=== PATIENT | male | born 1980 | race Hispanic/Latino ===

== ENCOUNTER 2024-06-02 14:06 | Emergency (ER) | payer BC, OTHER ==
--- OUTSIDE RECORDS SUMMARY | 2024-06-02 14:10 | XMS REPORT | Continuity of Care Document ---
Author Name Unknown Address [address] [facility] [address] [place] [address] [facility] Address [address] [facility] [address] [place] [address] Care Team Providers Care Qa Architect Name Role Phone PCP, PATIENT DOES NOT HAVE A Primary Care Physic nitish Unavailable LUIS GARCIA Attending Clinician Unavailab le Doctor Unassigned, [place] Attending Clinician U sincere Banerjee RN, Brody Galvan Attending Clinician Unavail RAUL Pool Attending Clinician Unavailwenceslao Lockwood MD, Pratima Galvan Attending Clinician [phone] Radha Kulkarni MD Attending Clinician Raul Diana MD Attending Clinician RADHA KULKARNI Admitting Clinician Unavail Radha Duarte MD Admitting Clinician Payers Payer Name Policy Type Policy Number Effective Date Expirati on Date Source Problems Condition Name Condition Details Condition Category Status Onset Date Resolution Date Last Treatment Date Treating Clinician Comments Source COVID-19 COVID-19 Disease Active 05-20 00:00: 00 [facility] Obesity (BMI 30-39.9) Obesity (BMI 30-39.9) Disease Active 05-20 00:00: 00 [facility] Allergies, Adverse Reactions, Alerts Allergy Name Allergy Type Status Severity Reaction(s) Onset Date Inactive Date Treating Clinician Comments Source NO KNOWN ALLERGIE S Drug Class Active [facility] Social History Social Habit Start Date Stop Date Quantity Comments Source Exposure to SARS-CoV-2 (event) Not sure [facility] Tobacco use and exposure 2020-05-21 00:00:00 2020-05-21 00:00:00 Never used [facility] Alcohol intake 2020-05-21 00:00:00 2020-05-21 00:00:00 Ex-drinker (finding) [facility] Sex Assigned At 1980 00:00:00 1980 00:00:00 [facility] Smoking Status Start Date Stop Date Source Never smoker [facility] Medications Ordered Medication Name Filled Medication Name Start Date Stop Date Current Medication? Ordering Clinician Indication Dosage Frequency Signature (SIG) Comments Components Source dextrometho rphan-guaif enesin 10-100 mg/5 mL solution 05-27 00:00: 00 06-27 04:59 :00 No [id number] 5mL Take 5 mL by mouth every 6 (six) hours as needed for Cough for up to 30 days. [facility] albuterol-i pratropium 20-100 mcg/actuati on inhaler 05-27 00:00: 00 06-27 04:59 :00 No [id number] 1{puff} Inhale 1 Puff every 6 (six) hours for 30 days. [facility] benzonatate 100 mg capsule 05-27 00:00: 00 06-27 04:59 :00 No [id number] 200mg Take 2 capsules by mouth 3 (three) times daily as needed for Cough for up to 30 days. [facility] dexAMETHaso ne 4 mg tablet 05-27 00:00: 00 05-30 04:59 :00 No [id number] 6mg Take 1.5 tablets by mouth daily for 2 days. [facility] furosemide (LASIX) injection 20 mg 05-23 15:15: 00 05-23 15:20 :00 No 20mg 20 mg, Slow IV Push, ONCE NOW, 1 dose, Sat05/23/20 at 1015, Routine [facility] benzonatate (TESSALON PERLES) capsule 200 mg 05-22 14:42: 25 Yes 200mg 200 mg, Oral, TIDPRN, Starting 05/22/20 at 0942, Until Discontinu ed, Routine, Cough [facility] dexamethaso ne (DECADRON PHOSPHATE) 6 mg in NaCl 0.9% (NS) 50 mL piggyback 05-21 23:00: 00 05-30 22:59 :00 No 6mg 6 mg, IV Piggyback, Q24H, 9 doses, First dose on [facility] 05/21/20 at 1800, Last dose on [place] 05/29/20 at 1800, 50 mL [facility] albuterol-i pratropium (COMBIVENT RESPIMAT) 20-100 mcg/actuati on inhaler 1 Puff 05-21 17:00: 00 Yes 1{puff} 1 Puff, Inhalation , Q6H, First dose (after last modificati on) on 05/21/20 at 1200, Until Discontinu ed, Routine
Is this order for a patient with suspected or confirmed COVID-19 infection? Yes [facility] enoxaparin (LOVENOX) injection 40 mg 05-21 14:00: 00 Yes 40mg 40 mg, Subcutaneo us, DAILY, First dose on 05/21/20 at 0900, Until Discontinu ed, Routine [facility] acetaminoph en (TYLENOL) tablet 325 mg 05-21 04:33: 50 Yes 325mg 325 mg, Oral, Q6HPRN, Starting Sat05/20/20 at 2333, Until Discontinu ed, Routine, Pain (scale 1-3), Pain (scale 4-6), Temp > 38.5 C [facility] dextrometho rphan-guaif enesin (ROBITUSSIN DM) 10-100 mg/5 mL solution 5 mL 05-21 04:33: 44 Yes 5mL 5 mL, Oral, Q6HPRN, Starting Sat05/20/20 at 2333, Until Discontinu ed, Routine, Cough [facility] Vital Signs Vital Name Observation Time Observation Value Comments S monica Heart rate 2020-05-27 17:52:00 83 /min [facility] Respiratory rate 2020-05-27 17:52:00 20 /min [facility] Oxygen saturation in Arterial blood by Pulse oximetry 2020-05-27 17:52:00 95 /min [facility] Systolic blood pressure 2020-05-27 16:27:00 112 mm[Hg] [facility] Diastolic blood pressure 2020-05-27 16:27:00 72 mm[Hg] [facility] Body temperature 2020-05-27 16:27:00 36.11 Jumana [facility] Body height 2020-05-21 04:40:00 175.3 cm [facility] Body weight 2020-05-21 04:40:00 121.1 kg [facility] BMI 2020-05-21 04:40:00 39.41 kg/m2 [facility] Procedures Procedure Date / Time Performed Performing Clinician Source EXTERNAL PROVIDER RECORDS 2020-06-09 05:01:00 Do ctor Unassigned, [place] [facility] MAGNESIUM 2020-05-24 09:21:00 Raul De Dios [facility] BASIC METABOLIC PANEL (NA, K, CL, CO2, GLUCOSE, BUN, CREATININE, CA) 2020-05-24 09:21:00 Raul De Dios [facility] HEPATIC FUNCTION PANEL ([id number]) (ALB,T.PRO,BILI T,BU/BC,ALT,AST,ALK PHOS) 2020-05-21 13:38:00 Millie Orozco [facility] BASIC METABOLIC PANEL (NA, K, CL, CO2, GLUCOSE, BUN, CREATININE, CA) 2020-05-21 13:38:00 [facility] CBC WITH DIFF 2020-05-21 13:38:00 Millie Orozco [facility] XR CHEST 1 VW 2020-05-21 10:58:00 Millie Orozco [facility] PNEUMOCOCCAL ANTIGEN 2020-05-21 08:24:00 Millie Orozco [facility] COVID-19 (ID NOW RAPID TESTING) 2020-05-21 08:19:00 [facility] LAB ONLY COVID INTERPRETATION 2020-05-21 08:19:00 Millie Orozco [facility] LACTATE DEHYDROGENASE 2020-05-21 05:13:00 [facility] FERR[facility] SERUM 2020-05-21 05:13:00 Millie Orozco [facility] C-REACTIVE PROTEIN 2020-05-21 05:13:00 Millie Orozco [facility] HEPATIC FUNCTION PANEL ([id number]) (ALB,T.PRO,BILI T,BU/BC,ALT,AST,ALK PHOS) 2020-05-21 05:13:00 [facility] BASIC METABOLIC PANEL (NA, K, CL, CO2, GLUCOSE, BUN, CREATININE, CA) 2020-05-21 05:13:00 [facility] CBC WITH DIFF 2020-05-21 05:13:00 Millie Orozco [facility] PROTHROMBIN TIME / INR 2020-05-21 05:13:00 [facility] D-DIMER 2020-05-21 05:13:00 Millie Orozco [facility] ACTIVATED PARTIAL THRMPLAS SPENCER 2020-05-21 05:13:00 [facility] N-TERMINAL PRO-BNP 2020-05-21 05:13:00 Millie Orozco [facility] PROCALCITONIN 2020-05-21 05:13:00 Millie Orozco [facility] HOSPITAL ADMISSION 2020-05-20 05:01:00 Doctor Un assigned, [place] [facility] Encounters Start Date/Time End Date/Time Encounter Type Admission Type Attending Clinicians Care Facility Care Department Encounter ID Source 2022-02-02 13:00:00 Inpatient SCAR BULLOCKJOSE, LUIS [facility] [id number] [facility] 2022-02-09 09:01:00 2022-02-09 09:01:00 Outpatient SCAR JOSELUIS PEÑALOZA [facility] [id number] [facility] 2020-06-09 00:00:00 2020-06-09 00:00:00 Orders Only Doctor Unassigned, [place] [facility] [id number] [facility] 2020-05-30 00:00:00 2020-05-30 00:00:00 Transition of Care Brody Banerjee Benjamín Harden [id number] [facility] 2020-05-20 23:05:00 2020-05-27 17:00:00 Inpatient U RAUL DIANA [facility] [id number] [facility] 2020-05-20 23:05:00 2020-05-27 17:00:00 Hospital Encounter Pratima Lockwood, Raul Perez [facility] [id number] [facility] Results Test Description Test Time Test Comments Results Result Co mments Source [facility] 10:03:42* Test Item Value Reference Range Interpretation Comme nts MAGNESIUM (test code = 7271759164) 2.4 mg/dL 1.7-2.4 Lab Interpretation (test cod e = 50113-4) Normal [facility] COVID [id number] 11:22:12COVID DMT InterpretationInterpretation/Recommendations: Molecular NAAT Tests for Active Infection with the SARS-CoV-2 Virus: The current test result is positive for the SARS-CoV-2 virus that causes COVID-19 illness. In ygxg-da-yqyaqkbo illness, the patient may be considered no longer infectious when it has been after 10 days since symptom onset, the patient has been afebrile for 24 hours without the use of fever-reducing medications, AND other symptoms of COVID-19 are improving. However, in patients who have been severely ill with COVID-19 or are severely immunocompromised, isolation up to 20days after symptom onset is recommended. Asymptomatic patients are considered infectious for the first 10 days subsequent to the initial positive test result. From the onset of symptoms, if any, thisresult is likely to remain positive up to 2-4 weeks. Tests for IgM and/or IgG Antibodies to the SARS-CoV-2 Virus: ? Testing for IgM and IgG antibodies approximately 3 weeks after illness onset will likely indicate whether the patient has produced antibodies to the SARS-CoV-2 virus. However, some patients may take longer to develop detectable antibodies, while some patients who were infected with SARS-CoV-2 may never develop antibodies. While antibodies to SARS-CoV-2 may provide some degree of im munity, at this time the strength and duration of the antibody response is unknown. Interpretation Result Comments:These interpretation comments are based upon all COVID-19 testing the patient has had at [facility], including molecular NAAT testing (more commonly known as PCR testing and Rapid ID Now testing) and antibody testing.It does not take into account any testing that a patient has had outside of the [facility] medical record. [facility] LABORATORY SERVICESCOVID PdiqrbvRFIT-YpO-0 Rapid ID NOW (no units) ? ? Date ? Value ? 05/21/2020 ? Positive (A) ? [facility] SERVICESUn[facility]-REACTIVE [id number] 16:10:53* Test Item Value Reference Range Interpretation Comme nts CRP (test code = 4954512767) 28.4 mg/dL <0.8 H Lab Interpretation (test cod e = 92381-2) Abnormal [facility] 1 [id number] 15:46:25Diffuse bilateral airspace opacities concerning for a multifocal infectiousprocess, consistent withhistory of COVID. Superimposed pneumonia can't beexcluded given the extensive changes. Cardiomegaly. Small bilateral perfusions. Preliminary Report Dictated by Resident: Khoi Madden MD., have reviewed this study and agree with the abovereport.EXAM: XR CHEST 1 VW COMPARISON: None HISTORY: COVID, SOB FINDINGS: Lungs: Diffuse bilateral patchy airspace opacities. Small bilateralpleuraleffusions are suspected. No pneumothorax. Heart/Mediastinum: The cardiomediastinal silhouette is obscured but likelyenlarged. Bones: No acute osseous abnormality is seen. [facility], Radiant ResultsInft User - 05/21/2020 10:47 AM CDTEXAM: XR CHEST 1 VWCOMPARISON: NoneHISTORY: COVID, SOB FINDINGS:Lungs: Diffuse bilateral patchy airspace opacities. Small bilateral pleuraleffusions are suspected. No pneumothorax.Heart/Mediastinum: The cardiomediastinal silhouette is obscured but likelyenlarged.Bones: No acute osseous abnormality is seen.IMPRESSIONDiffuse bilateral airspace opacities concerningfor a multifocal infectiousprocess, consistent with history of COVID. Superimposed pneumonia can't beexcluded given the extensive changes.Cardiomegaly.Small bilateral perfusions.Preliminary Report Dictated by Resident: Khoi Jasmine MD., have reviewed this study and agree with theabovereport.[facility] WITH [id number] 14:57:08* Test Item Value Reference Range Interpretation Comme nts WBC (test code = 6690-2) See_Comment H [Automated messa ge] The system which generated this result transmitted reference range: 4.20 - 10.70 10*3/?L. The reference range was not used to interpret this result as normal/abnormal. RBC (test code = 789-8) See_Comment [Automated messa ge] The system which generated this result transmitted reference range: 4.26 - 5.52 10*6/?L. The reference range was not used to interpret this result as normal/abnormal. HGB (test code = 718-7) 14.3 g/dL 12.2-16.4 HCT (test code = 4544-3) 41.6 % 38.4-49.3 MCV (test code = 787-2) 86.7 fL 81.7-95.6 MCH (test code = 785-6) 29.8 pg 26.1-32.7 MCHC (test code = 786-4) 34.4 g/dL 31.2-35.0 RDW-SD (test code = 83343-1) 40.3 fL 38.5-51.6 RDW-CV (test code = 788-0) 12.7 % 12.1-15.4 PLT (test code = 777-3) See_Comment H [Automated messa ge] The system which generated this result transmitted reference range: 150 - 328 10*3/?L. The reference range was not used to interpret this result as normal/abnormal. MPV (test code = 45272-9) 9.8 fL 9.8-13.0 NRBC/100 WBC (test code = 6852040070) See_Comment [Automated Sn[employer] Home ssage] The system which generated this result transmitted reference range: 0.0 - 10.0 /100 WBCs. The reference range was not used to interpret this result as normal/abnormal. NRBC x10^3 (test code = 3771277911) <0.01 See_Comment [Automated Sypherlinka ge] The system which generated this result transmitted reference range: 10*3/?L. The reference range was not used to interpret this result as normal/abnormal. GRAN MAT (NEUT) % (test code = 770-8) 81.2 % IMM GRAN % (test code = 6217915478) 2.70 % LYMPH % (test code = 736-9) 11.8 % MONO % (test code = 5905-5) 4.0 % EOS % (test code = 713-8) 0.1 % BASO % (test code = 706-2) 0.2 % GRAN MAT x10^3(ANC) (test code = 1402305615) 9.76 10*3/uL 1.99-6.95 H IMM GRAN x10^3 (test code = 0145446849) 0.32 10*3/uL 0.00-0.06 H LYMPH x10^3 (test code = 731-0) 1.41 10*3/uL 1.09-3.23 MONO x10^3 (test code = 742-7) 0.48 10*3/uL 0.36-1.02 EOS x10^3 (test code = 711-2) <0.03 0.06-0.53 L BASO x10^3 (test code = 704-7) <0.03 0.01-0.09 POLYCHROMASIA (test code = 92862-0) 2+ See_Comment [Automated 3scale] The system which generated this result transmitted reference range: 2+. The reference range was not used to interpret this result as normal/abnormal. HYPERSEG NEUTS (test code = 765-8) Present See_Comment A [Automated 3scale] The system which generated this result transmitted reference range: (none). The reference range was not used to interpret this result as normal/abnormal. Lab Interpretation (test code = 30119-8) Abnormal [facility] METABOLIC PANEL (NA, K, CL, CO2, GLUCOSE, BUN, CREATININE, CA)2020-05-21 14:30:42* Test Item Value Reference Range Interpretation Comme nts NA (test code = 5943731060) 137 mmol/L 135-145 K (test code = 1243715192) 4.4 mmol/L 3.5-5.0 CL (test code = 9241043619) 104 mmol/L 98-108 CO2 TOTAL (test code = 1532106733) 25 mmol/L 23-31 AGAP (test code = 1537461139) 2-16 BUN (test code = 8620555367) 12 mg/dL 7-23 GLUCOSE (test code = 8585051029) 143 mg/dL 70-110 H CREATININE (test code = 4467467824) 0.61 mg/dL 0.60-1.25 CALCIUM (test code = 5508435790) 8.5 mg/dL 8.6-10.6 L eGFR (test code = 7642574042) mL/min/1.73m2 CHRISTOPHE (test code = CHRISTOPHE) Association of Glomerular Filtration Rate (GFR) and Staging of Kidney Disease* + --+ --+ ------+| GFR (mL/min/1.73 m2) ?| With Kidney Damage ?| ?Without Kidney Damage+ --------+ --------+ +| ?>90 ?| ?Stage one ?| ? Normal ?+ ---+ ---+ -------+| ?60-89 ?| ?Stage two ?| ? Decreased GFR ? + --+ --+ ------+| ?30-59 ?| ?Stage three ?| ? Stage three ? + --+ --+ ------+| ?15-29 ?| ?Stage four ? | ? Stage four ?+ ---+ ---+ -------+| ?<15 (or dialysis) ? ?| ?Stage five ? | ? Stage five ?+ ---+ ---+ -------+ *Each stage assumes the associated GFR level has been in effect for at least three months. ?Stages 1 to 5, with or without kidney disease, indicate chronic kidney disease. Notes: Determination of stages one and two (with eGFR >59mL/min/1.73 m2) requires estimation of kidney damage for at least three months as defined by structural or functional abnormalities of the kidney, manifested by either:Pathological abnormalities or Markers of kidney damage (including abnormalities in the composition of the blood or urine or abnormalities in imaging tests). Lab Interpretation (test code = 97499-5) Abnormal [facility] (14777) (ALB,T.PRO,BILI T,BU/BC,ALT,AST,ALK PHOS)2020-05-21 14:30:42* Test Item Value Reference Range Interpretation Comme nts TOTAL BILI (test code = 5773759182) 0.5 mg/dL 0.1-1.1 BILI UNCON (test code = 4530962601) 0.3 mg/dL 0.1-1.1 BILI CONJ (test code = 9671872964) 0.0 mg/dL 0.0-0.3 T PROTEIN (test code = 5146771850) 7.2 g/dL 6.3-8.2 ALBUMIN (test code = 0125988929) 3.4 g/dL 3.5-5.0 L ALK PHOS (test code = 0025923787) 90 U/L 34-122 ALTv (test code = 1742-6) 49 U/L 5-50 AST(SGOT) (test code = 0519433476) 56 U/L 13-40 H Lab Interpretation (test cod e = 28651-5) Abnormal [facility]MINAL [id number] 12:40:41* Test Item Value Reference Range Interpretation Comme nts NT-proBNP (test code = 2157980416) 122 pg/mL See_Comment [Automated message] The system which generated this result transmitted reference range: <=125. The reference range was not used to interpret this result as normal/abnormal. CHRISTOPHE (test code = CHRISTOPHE) Biotin has been reported to cause a negative bias, interpret results relative to patient's use of biotin. Lab Interpretation (test code = 37405-8) Normal [facility] CenterLEGIONELLA URINARY ANTIGEN [id number] 10:12:37* Test Item Value Reference Range Interpretation Comme nts Legionella Urinary Antigen (test code = 2540247491) Negative Negative CHRISTOPHE (test code = CHRISTOPHE) Negative for L. pneumophilia serogroup I antigen in urine suggesting no recent or current infection. Infection due to Legionella cannot be ruled out since other serogroups and species may cause disease. Furthermore, antigens may not be present in urine during early stage of infection, or the level of antigen present in urine may be below the detection limit of the test. Lab Interpretation (test code = 50416-2) Normal [facility] CenterPNEUMOCOCCAL [id number] 10:12:27* Test Item Value Reference Range Interpretation Comme nts S. pneumoniae antigen (test code = 2338150522) Negative Negative Lab Interpretation (test cod e = 16701-5) Normal [facility] Center[facility]OVID[facility] (ID NOW RAPID TESTING)2020-05-21 08:38:50* Test Item Value Reference Range Interpretation Comme nts SARS-CoV-2 Rapid ID NOW (test code = 16117-0) Positive Not Detected A CHRISTOPHE (test code = CHRISTOPHE) ID NOW COVID-19 As say is an isothermal nucleic acid amplification test intended for the qualitative detection of nucleic acid from SARS-CoV-2 viral RNA in nasopharyngeal (SOIL SORT WORKER) specimens. It is used under Emergency Use Authorization (EUA) by FDA. The limit of detection (LOD) of the assay is 125 Genome Equivalents/mL. A positive result is indicative of the presence of SARS-CoV-2 RNA. ?Clinical correlation with patient history and other diagnostic information is necessary to determine patient infection status. A negative (Not Detected) result does not preclude SARS-CoV-2 infection. In patients with clinical symptoms and other tests that are consistent with SARS-CoV-2 infection, negative results should be treated as presumptive negative and a new specimen should be tested with alternative PCR molecular test. Invalid: Please collect a new specimen for repeat patient testing if clinically indicated. Lab Interpretation (test code = 24760-4) Abnormal [facility] CenterFERRITIN [id number] 06:40:56* Test Item Value Reference Range Interpretation Comme nts FERRITIN (test code = 5772337359) 541.0 ng/mL 18.0-464.0 H CHRISTOPHE (test code = CHRISTOPHE) Biotin has been reported to cause a negative bias, interpret results relative to patient's use of biotin. Lab Interpretation (test code = 86497-7) Abnormal [facility] CenterPROCALCITONIN2021-04-03 06:26:40* Test Item Value Reference Range Interpretation Comme nts Procalcitonin (test code = 6928736662) 0.11 ng/mL <0.07 H CHRISTOPHE (test code = CHRISTOPHE) INTERPRETATION OF PROCALCITONIN RESULTS IN ADULTS >= 18 YEARS OF AGE Initiation and discontinuation of antibiotics on patients with suspected or confirmed Lower Respiratory Tract Infection in Adults >= 18 years of age. + +-------- --------+ + -----+|Procalcitonin |Interpretation ?|Antibiotic ? ? |Considerations ? |ng/mL ? | ?|recommendation | ? + +-------- --------+ + -----+| <0.1 ? | Bacterial ? ? ?| Strongly ? ? ?| ? | ?| infection very | discouraged ? | Overruling: ? | ?| unlikely ? ? ? | ? | ? Clinically unstable ? ? ? + +-------- --------+ + ? High risk for adverse ? ? | <0.25 ?| Bacterial ? ? ?| Discouraged ? | ? outcome ? | ?| infection ? ? ?| ? | ? SEE IMPORTANT NOTE ?| ?| unlikely ? ? ? | ? | ? + +-------- --------+ + -----+| >=0.25 ? ? ? | Bacterial ? ? ?| Encouraged ? ?| ? | ?| infection ? ? ?| ? | ? | ?| likely ? | ? | Consider treatment failure ?+ +------- ---------+ -+ if levels does not decrease | >0.5 ? | Bacterial ? ? ?| Strongly ? ? ?| appropriately ? | ?| infection very | encouraged ? ?| ? | ?| likely ? | ? | ? + +-------- --------+ + -----+ Discontinuation of antibiotics in high-acuity patients with suspected or confirmed sepsis in Adults >= 18 years of age. + +-------- --------+ + -----+|Procalcitonin |Interpretation ?|Antibiotic ? ? |Considerations ? |ng/mL ? | ?|recommendation | ? + +-------- --------+ + -----+| <0.25 ?| Bacterial ? ? ?| Strongly ? ? ?| ? | ?| infection very | discouraged ? | Overruling: ? | ?| unlikely ? ? ? | ? | ? Clinically unstable ? ? ? + +-------- --------+ + ? High risk for adverse ? ? | <0.5 or drop | Bacterial ? ? ?| Discouraged ? | ? outcome ? | >80% from ? ?| infection ? ? ?| ? | ? SEE IMPORTANT NOTE ?| highest PCT ?| unlikely ? ? ? | ? | ? | level ?| ?| ? | ? + +-------- --------+ + -----+| >=0.5 ?| Bacterial ? ? ?| Encouraged ? ?| ? | ?| infection ? ? ?| ? | ? | ?| likely ? | ? | Consider treatment failure ?+ +------- ---------+ -+ if levels does not decrease | >1.0 ? | Bacterial ? ? ?| Strongly ? ? ?| appropriately ? | ?| infection very | encouraged ? ?| ? | ?| likely ? | ? | ? + +-------- --------+ + -----+ Percentage of drop of Procalcitonin calculation for Discontinuation of antibiotics in high-acuity patients with suspected or confirmed sepsis in Adults >= 18 years of age. ? Procalcitonin highest{}-Procalcitonin current{}Delta Procalcitonin = x100% ? Procalcitonin current {} IMPORTANT NOTE: Procalcitonin may be elevated without bacterial infection by physiologic stress related to trauma, [place], chronic dialysis, metastatic cancer, surgery in the past seven days, malaria, some fungal infections, and some forms of vasculitis. The interpretation algorithm may not apply to patients with immunosuppression (equivalent of >10 mg of prednisone daily), HIV with CD4 cell count < 350 cells/mm3, active malignancy on systemic chemotherapy, solid organ transplant or hematopoietic stem cell transplantation, or hospital acquired pneumonia. Additionally, some clinical trials of procalcitonin have excluded patients with shock requiring vasopressor use, acute respiratory failure requiring mechanical ventilation, or those with known lung abscess/empyema. For further information please refer to:[email or web address] Lab Interpretation (test code = 41581-7) [facility] (NA, K, CL, CO2, GLUCOSE, BUN, CREATININE, CA)2020-05-21 06:00:31* Test Item Value Reference Range Interpretation Comme nts NA (test code = 6233500030) 137 mmol/L 135-145 K (test code = 3360962266) 4.4 mmol/L 3.5-5.0 CL (test code = 6861150079) 105 mmol/L 98-108 CO2 TOTAL (test code = 6951614241) 25 mmol/L 23-31 AGAP (test code = 9127390001) 2-16 BUN (test code = 9924407632) 9 mg/dL 7-23 GLUCOSE (test code = 0213964768) 153 mg/dL 70-110 H CREATININE (test code = 3912334305) 0.60 mg/dL 0.60-1.25 CALCIUM (test code = 8649206066) 8.8 mg/dL 8.6-10.6 eGFR (test code = 8333036973) mL/min/1.73m2 CHRISTOPHE (test code = CHRISTOPHE) Association of Glomerular Filtration Rate (GFR) and Staging of Kidney Disease* + --+ --+ ------+| GFR (mL/min/1.73 m2) ?| With Kidney Damage ?| ?Without Kidney Damage+ --------+ --------+ +| ?>90 ?| ?Stage one ?| ? Normal ?+ ---+ ---+ -------+| ?60-89 ?| ?Stage two ?| ? Decreased GFR ? + --+ --+ ------+| ?30-59 ?| ?Stage three ?| ? Stage three ? + --+ --+ ------+| ?15-29 ?| ?Stage four ? | ? Stage four ?+ ---+ ---+ -------+| ?<15 (or dialysis) ? ?| ?Stage five ? | ? Stage five ?+ ---+ ---+ -------+ *Each stage assumes the associated GFR level has been in effect for at least three months. ?Stages 1 to 5, with or without kidney disease, indicate chronic kidney disease. Notes: Determination of stages one and two (with eGFR >59mL/min/1.73 m2) requires estimation of kidney damage for at least three months as defined by structural or functional abnormalities of the kidney, manifested by either:Pathological abnormalities or Markers of kidney damage (including abnormalities in the composition of the blood or urine or abnormalities in imaging tests). Lab Interpretation (test code = 49673-2) [facility] (21593[facility] (ALB,T.PRO,BILI T,BU/BC,ALT,AST,ALK PHOS)2020-05-21 06:00:31* Test Item Value Reference Range Interpretation Comme nts TOTAL BILI (test code = 6316130739) 0.5 mg/dL 0.1-1.1 BILI UNCON (test code = 6421676729) 0.4 mg/dL 0.1-1.1 BILI CONJ (test code = 6561591219) 0.0 mg/dL 0.0-0.3 T PROTEIN (test code = 3512361576) 7.5 g/dL 6.3-8.2 ALBUMIN (test code = 6526705599) 3.6 g/dL 3.5-5.0 ALK PHOS (test code = 2644134772) 98 U/L 34-122 ALTv (test code = 1742-6) 47 U/L 5-50 AST(SGOT) (test code = 9858339775) 60 U/L 13-40 H Lab Interpretation (test cod e = 67874-9) [facility]normal [facility] CenterLACT[facility] [id number] 06:00:31* Test Item Value Reference Range Interpretation Comme nts LDH (test code = 1887056621) 870 U/L 300-600 H Lab Interpretation (test cod e = 82040-8) Abnormal [facility] WITH [id number] 05:59:15* Test Item Value Reference Range Interpretation Comme nts WBC (test code = 6690-2) See_Comment H [Automated [employer] ge] The system which generated this result transmitted reference range: 4.20 - 10.70 10*3/?L. The reference range was not used to interpret this result as normal/abnormal. RBC (test code = 789-8) See_Comment [Automated [employer] ge] The system which generated this result transmitted reference range: 4.26 - 5.52 10*6/?L. The reference range was not used to interpret this result as normal/abnormal. HGB (test code = 718-7) 14.6 g/dL 12.2-16.4 HCT (test code = 4544-3) 42.5 % 38.4-49.3 MCV (test code = 787-2) 86.4 fL 81.7-95.6 MCH (test code = 785-6) 29.7 pg 26.1-32.7 MCHC (test code = 786-4) 34.4 g/dL 31.2-35.0 RDW-SD (test code = 31809-2) 40.0 fL 38.5-51.6 RDW-CV (test code = 788-0) 12.7 % 12.1-15.4 PLT (test code = 777-3) See_Comment H [Automated messa ge] The system which generated this result transmitted reference range: 150 - 328 10*3/?L. The reference range was not used to interpret this result as normal/abnormal. MPV (test code = 37744-4) 9.6 fL 9.8-13.0 L NRBC/100 WBC (test code = 3955583998) See_Comment [Automated me ssage] The system which generated this result transmitted reference range: 0.0 - 10.0 /100 WBCs. The reference range was not used to interpret this result as normal/abnormal. NRBC x10^3 (test code = 7501597752) <0.01 See_Comment [Automated messa ge] The system which generated this result transmitted reference range: 10*3/?L. The reference range was not used to interpret this result as normal/abnormal. GRAN MAT (NEUT) % (test code = 770-8) 84.8 % IMM GRAN % (test code = 3776163954) 4.10 % LYMPH % (test code = 736-9) 9.2 % MONO % (test code = 5905-5) 1.2 % EOS % (test code = 713-8) 0.4 % BASO % (test code = 706-2) 0.3 % GRAN MAT x10^3(ANC) (test code = 2618946014) 9.34 10*3/uL 1.99-6.95 H IMM GRAN x10^3 (test code = 4203300513) 0.45 10*3/uL 0.00-0.06 H LYMPH x10^3 (test code = 731-0) 1.01 10*3/uL 1.09-3.23 L MONO x10^3 (test code = 742-7) 0.13 10*3/uL 0.36-1.02 L EOS x10^3 (test code = 711-2) 0.04 10*3/uL 0.06-0.53 L BASO x10^3 (test code = 704-7) 0.03 10*3/uL 0.01-0.09 Lab Interpretation (test code = 45782-9) Abnormal [facility] CenterD-[id number] 05:39:50* Test Item Value Reference Range Interpretation Comments D-DIMER (test code = 2722429716) See_Comment H [Automated message] The system which generated this result transmitted reference range: <0.50 ?g/mL (FEU). The reference range was not used to interpret this result as normal/abnormal. CHRISTOPHE (test code = CHRISTOPHE) This test may be used in conjunction with a clinical pretest probability (PTP) assessment model to exclude venous thromboembolism (VTE) in patients suspected of deep venous thrombosis (DVT) and pulmonary embolism (PE) A D-Dimer value less than 0.50 ?g/ml (FEU) has a negative predicative value of 96 to 100% (95% CI)and 97 to 100% (95% CI) as an aid in the diagnosis of deep vein thrombosis (DVT) and pulmonary embolism when there is low or moderate pretest probability of PE or DVT. D-Dimer values are expressed in initial fibrinogen equivalent units (FEU)" The assay results should be used with other information, including the clinical context, in forming a diagnosis. Lab Interpretation (test code = 52741-7) Abnormal [facility] CenterACTIVATED PARTIAL THRMPLAS [id number] 05:39:50* Test Item Value Reference Range Interpretation Comme [facility] APTT Patient (test code = 3173-2) See_Comment [Automated 3scale] The system which generated this result transmitted reference range: 26 - 36 Seconds. The reference range was not used to interpret this result as normal/abnormal. Lab Interpretation (test code = 85150-7) Normal [facility] CenterPROTHROMBIN TIME / [id number] 05:39:49* Test Item Value Reference Range Interpretation Comme [facility] PROTIME PATIENT (test code = 5964-2) See_Comment H [Automated [employer]] The system which generated this result transmitted reference range: 10.1 - 12.6 Seconds. The reference range was not used to interpret this result as normal/abnormal. INR (test code = 6301-6) Normal INR <1.1; Warfarin Therapeutic range 2.0 to 3.0 or 2.5 to 3.5, depending upon the indications. Lab Interpretation (test code = 88886-7) Abnormal [facility]
--- NOTE | 2024-06-02 14:36 | EDPHYS ---
Physician Documentation [facility] Name: Leela Graham Jr Age: 43 yrs Sex: Male : 1980 Arrival Date: 06/02/2024 Time: 14:06 Bed DX3 Private MD: ED Physician Nima Oquendo HPI: 06/02 14:30 This 43 yrs old Male presents to ER via Unassigned with complaints of Boil - kb on back. 14:30 Pt is a 43 year old male who presents for abscess to upper back that started 5 days ago kb and has gotten worse. Denies fever. . Historical: - Allergies: 14:37 No Known Allergies; iw - Home Meds: 14:37 None [Active]; iw - PMHx: 14:37 None; iw - PSHx: 14:37 None; iw ROS: 14:30 Constitutional: As per HPI kb Exam: 14:30 Constitutional: This is a well developed, well nourished patient who is awake, alert, kb and in no acute distress. Head/Face: Normocephalic, atraumatic. ENT: Moist Mucous membranes Cardiovascular: Regular rate Respiratory: Respirations even and unlabored. No increased work of breathing. Talking in full sentences MS/ Extremity: Pulses equal, no cyanosis. Neurovascular intact. Full, normal range of motion. Neuro: Awake and alert, GCS 15, oriented to person, place, time, and situation. 14:30 Skin: abscess, that is moderate sized, of the left trapezius, with induration, Vital Signs: 14:36 BP 136 / 104; Pulse 82; Resp 18; Temp 98.7; Pulse Ox 98% on R/A; Weight 117.93 kg; iw Height 5 ft. 9 in. ; Pain 7/10; 14:36 Body Mass Index 38.39 (117.93 kg, 175.26 cm) iw 14:36 Pain Scale: Adult iw MDM: 14:10 Medical Screening Exam initiated kb 14:30 Differential diagnosis: cellulitis, insect bite, abscess. Data reviewed: vital signs, kb nurses notes. Counseling: I had a detailed discussion with the patient and/or guardian regarding the historical points, exam findings, and any diagnostic results supporting the discharge/admit diagnosis, the need for outpatient follow up, a family practitioner, to return to the emergency department if symptoms worsen or persist or if there are any questions or concerns that arise at home. ED course: no fluctuance/drainable abscess. Administered Medications: 15:12 Drug: Ketorolac IM 30 mg IM once Route: IM; Site: left deltoid; jb4 15:12 Drug: Cephalexin PO 500 mg PO once Route: PO; ss 15:12 Drug: Trimethoprim-Sulfamethoxazole PO (160 mg-800 mg (DS) 1 tablet PO once Route: PO; ss Disposition: 17:26 Co-signature as Attending Physician, Nima Oquendo MD I reviewed the patient's care rt provided by the Advanced Practice Provider and agree with the diagnosis and treatment plan. Disposition Summary: 06/02/24 14:35 Discharge Ordered Notes: Location: Home kb Condition: Stable kb Diagnosis - Cutaneous abscess of back [any part, except buttock] kb Followup: kb - With: Emergency Department - When: As needed - Reason: Worsening of condition Followup: kb - With: Private Physician - When: 2 - 3 days - Reason: Recheck today's complaints, Continuance of care, Re-evaluation by your physician Discharge Instructions: - Discharge Summary Sheet kb - Skin Abscess, [id number] kb Forms: - Medication Reconciliation Form kb - Antibiotic Education kb - Prescription Opioid Use kb - Patient Portal Instructions kb - Leadership Thank You Letter kb Prescriptions: - Cephalexin 500 mg Oral Capsule - take 1 capsule ORAL route every 8 hours for 10 days; 30 capsule; Refills: 0, kb Product Selection Permitted - Bactrim DS 800-160 mg Oral tablet - take 1 tablet ORAL route every 12 hours for 10 days; 20 tablet; Refills: 0, kb Product Selection Permitted Signatures: Faby Zhao, REBECCA-C PLATINUM SMITH-Felisha Darnell, KATJA RN iw Yanely Liu RN RN ss Bryson, James, RN RN jb4 Nima Oquendo MD MD rt
[2024-06-02] MEDS ORDERED: SMZ./TMP. 800/160 MG TABLET ONE (15:05)
[2024-06-02] MEDS ORDERED: KETOROLAC 30 MG/ML INJ ONE (15:05)
[2024-06-02] MEDS ORDERED: CEPHALEXIN 250 MG CAP ONE (15:05)
--- NOTE | 2024-06-02 15:39 | ER ---
Nurse's Notes [facility] Name: Leela Graham Jr Age: 43 yrs Sex: Male : 1980 Arrival Date: 06/02/2024 Time: 14:06 Bed DX3 Private MD: Diagnosis: Cutaneous abscess of back [any part, except buttock] Presentation: 06/02 14:36 Chief complaint: Patient states: boil on upper back X 2 days , not draining. iw Coronavirus screen: At this time, the client does not indicate any symptoms associated with coronavirus-19. Ebola Screen: No symptoms or risks identified at this time. Initial Sepsis Screen: Does the patient meet any 2 criteria? No. Patient's initial sepsis screen is negative. Does the patient have a suspected source of infection? No. Patient's initial sepsis screen is negative. Risk Assessment: Do you want to hurt yourself or someone else? Patient reports no desire to harm self or others. Onset of symptoms was May 31, 2024. 14:36 Method Of Arrival: Ambulatory iw 14:36 Acuity: ELOISE 4 iw Historical: - Allergies: 14:37 No Known Allergies; iw - Home Meds: 14:37 None [Active]; iw - PMHx: 14:37 None; iw - PSHx: 14:37 None; iw Vital Signs: 14:36 BP 136 / 104; Pulse 82; Resp 18; Temp 98.7; Pulse Ox 98% on R/A; Weight 117.93 kg; iw Height 5 ft. 9 in. ; Pain 7/10; 14:36 Body Mass Index 38.39 (117.93 kg, 175.26 cm) iw 14:36 Pain Scale: Adult iw ED Course: 14:09 Patient arrived in ED. im 14:10 Faby Zhao FNP-C is PHCP. kb 14:10 Nima Oquendo MD is Attending Physician. kb 14:37 Triage completed. iw 15:17 Prieto Shaw, KATJA is Primary Nurse. jb4 Administered Medications: 15:12 Drug: Ketorolac IM 30 mg IM once Route: IM; Site: left deltoid; jb4 15:12 Drug: Cephalexin PO 500 mg PO once Route: PO; ss 15:12 Drug: Trimethoprim-Sulfamethoxazole PO (160 mg-800 mg (DS) 1 tablet PO once Route: PO; ss Outcome: 14:35 Discharge ordered by . kb 15:39 Patient left the ED. ap3 Signatures: Faby Zhao FNP-C FNP-Felisha Darnell RN KATJA iw Yanely Liu RN RN ss Prieto Shaw RN RN jb4 Lida Dobbs RN RN ap3 Alyssa Manzo
[2024-06-02 17:02] VITALS: BP 136/104; TEMP 98.7; O2SAT 98
== END 2024-06-02 15:39 | disposition home or self-care (01) ==
LOC: ER 14:06
DX: L02.212 Cutaneous abscess of back [any part, except buttock and flank] (principal)